=== PATIENT | male | born 1960 | race Caucasian/White ===

== ENCOUNTER 2019-01-14 05:09 | Observation (INO) ==
[2019-01-06 13:48] LABS: BASO# 0.07 X1000 (0.0-0.2); BASO% 0.7 % (0.0-0.8); EOS# 0.22 X1000 (0.0-0.7); EOS% 2.3 % (0.0-10.0); HEMATOCRIT 42.4 % (42.0-52.0); HEMOGLOBIN 14.1 g/dL (14.0-18.0); LYMPH# 3.02 X1000 (1.2-3.4); LYMPH% 31.6 % (20.5-51.1); MCHC 33.3 g/dL (33-37); MCV 81.1 FL (81-99); MONO# 0.58 X1000 (0.11-0.59); MONO% 6.1 % (1.7-9.3); MPV 11.5 FL (7.4-10.4); NEUT# 5.67 X1000 (1.4-6.5); NEUT% 59.3 % (42.2-75.2); PLT 179 X1000 (130-400); RBC 5.23 XMIL (4.7-6.1); RDW 14.2 % (11.5-14.5); WBC 9.56 X1000 (4.8-10.8)
[2019-01-06 14:12] LABS: AGAP 13; BUN 25 mg/dL (8-22); CALCIUM 8.8 mg/dL (8.8-10.2); CHLORIDE 98 mmol/L (98-107); COSMO 288; CREATININE 1.2 mg/dL (0.7-1.2); ESTIMATED GFR > 60; GLUCOSE 136 mg/dL (70-104); POTASSIUM 4.1 mmol/L (3.5-5.1); SODIUM 141 mmol/L (136-145); TCO2 30 mmol/L (25-35)
[2019-01-14] MEDS ORDERED: LR 1,000 ML ONE (05:36)
[2019-01-14] MEDS ORDERED: VALIUM ONE (05:36)
[2019-01-14] MEDS ORDERED: PEPCID ONE (05:36)
[2019-01-14] MEDS ORDERED: KEFZOL 1 GM/D5W 2 GM/100 ML IVPB ONE (05:36)
[2019-01-14] MEDS ORDERED: REGLAN ONE (05:36)
[2019-01-14] MEDS ORDERED: DIPRIVAN 1% ONE (06:24)
[2019-01-14] MEDS ORDERED: XYLOCAINE-MPF 2% ONE (07:27)
[2019-01-14] MEDS ORDERED: ROBINUL ONE (07:30)
[2019-01-14] MEDS ORDERED: NEO-SYNEPHRINE ONE (07:33)
[2019-01-14] MEDS ORDERED: PERCOCET-10 ONE (08:01)
[2019-01-14] MEDS: DILAUDID ONE ×6 (08:03→09:02)
[2019-01-14] MEDS ORDERED: LASIX ONE (08:14)
[2019-01-14] MEDS ORDERED: CARDIZEM ONE (08:28)
[2019-01-14] MEDS ORDERED: CARDIZEM IV ONE ×2 (08:30→12:45)
--- NOTE | 2019-01-14 08:42 | EKG Report ---
Test Performed on : 01/14/2019 08:26:03 AM Test Reason : rhythm change Blood Pressure : / mmHG Vent. Rate : 129 BPM Atrial Rate : 117 BPM P-R Int : 000 ms QRS Dur : 100 ms QT Int : 358 ms P-R-T Axes : 000 005 004 degrees QTc Int : 524 ms Atrial fibrillation. with rapid ventricular response. Nonspecific ST abnormality Abnormal ECG When compared with ECG of 12-OCT-2018 13:49, Atrial fibrillation. has replaced Sinus rhythm. Vent. rate has increased BY [address] now depressed in Anterolateral leads Confirmed by Tyler MENENDEZ, Karan Machado ([id number]) on 01/14/2019 4:19:43 PM
[2019-01-14] MEDS ORDERED: CARDIZEM 125 MG in NS 100 ML IV SCH ×2 (09:00→12:49)
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
--- NOTE | 2019-01-14 11:02 | CARDIOLOGY CONSULTATION ---
DATE: 01/14/2019 This is a consultation requested by Dr. Harmon from the Anesthesiology group and the Urology services of Dr. Moore. REASON FOR CONSULTATION: Atrial fibrillation postoperative. CHIEF COMPLAINT: Back pain. HISTORY: Mr. Nuñez is a 58-year-old male, who has been in his usual state of health. He has been diagnosed with recurrent kidney stones and he had undergone cystoscopy on 11/[address] Moore's services. He was brought today for external shockwave lithotripsy of the left side. Following the completion of the procedure, the patient was noted to become tachycardic and they did an EKG, which showed atrial fibrillation with rapid response. His baseline heart rate was 81 beats per minute before the procedure and the heart rate has increased to 136 beats per minute. The patient denies having chest pain, dyspnea, or palpitations. He is awake. He just has back discomfort. PAST MEDICAL HISTORY: His past history is negative for previous heart disease. He is being treated for hypertension by Dr. Ceja, who is his family doctor. He does suffer from chronic back pain. He has been admitted at some point to a hospital with abdominal pain, nausea and vomiting in February of 2018 with a question of opiate abuse. PAST SURGICAL HISTORY: He has had bilateral hip surgeries, he has chronic hip pain. He went on Disability because of back and hip pain. HOME MEDICATIONS: His home medications at this time included fluoxetine 40 mg daily, oxycodone/acetaminophen 10/325 3 times a day, lisinopril HCTZ 20/25 daily, Flomax 0.4 mg daily. ALLERGIES: The patient is not allergic to any medicine. FAMILY HISTORY: Negative. SOCIAL HISTORY: He is , lives by himself in [place]. He has 1 daughter and 1 granddaughter, who live in [place]. He smokes a pack of cigarettes a day. 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 He went on Disability just 3 years ago on account of his chronic back pain and hip pain. REVIEW OF SYSTEMS: He has been having issues with recurrent kidney stones. Recurrent back pain. No other positives. PHYSICAL EXAMINATION: Vital signs: Blood pressure right now is 167/92, pulse 136, respirations 16. General: The patient is awake, alert, oriented, in no distress. HEENT: Unremarkable. Chest: Symmetrical breath sounds. Heart: Sounds are irregularly irregular. No gallop or murmur. Abdomen: Nontender, soft. No masses. No hepatomegaly. Extremities: Showed good pulses. No peripheral edema. Neurologic exam: Follows commands, move all 4 extremities. LABORATORY: Most recent blood work that we have in the computer is from 01/07/2019. Sodium 141, potassium 4.1, BUN 25, creatinine 1.2. Hemoglobin 14.1, hematocrit is 42.4%, white cell count was normal. IMPRESSION: 1. Patient who presents with atrial fibrillation postoperatively. 2. History of chronic back pain. 3. History of recurrent kidney stones status post external shockwave lithotripsy today. 4. History of hypertension. RECOMMENDATIONS: At this time, we will keep him on IV Cardizem. I am going to get him started on low-dose metoprolol. He has to be admitted to a stepdown cardiac unit to control his atrial fibrillation. I will arrange for a subsequent cardiac workup once the patient is back in sinus rhythm. At this time, he is asymptomatic. He does not appear to be critically ill. We will follow him. cc: MD Terrance Tate MD Sergey S. Ananyev, MD
[2019-01-14] MEDS ORDERED: LANOXIN IV ONE (12:58)
[2019-01-14] MEDS ORDERED: PHENERGAN PO PRN (13:03)
[2019-01-14] MEDS: PROZAC PO SCH (13:18)
[2019-01-14] MEDS: FLOMAX PO SCH (13:18)
[2019-01-14] MEDS: PERCOCET-10 PO PRN ×2 (13:18→17:56)
[2019-01-14] MEDS: PRINZIDE 10/12.5MG PO SCH (13:21)
--- NOTE | 2019-01-14 14:47 | EKG Report ---
Test Performed on : 01/14/2019 2:05:01 PM Test Reason : Converted to SR Blood Pressure : / mmHG Vent. Rate : 064 BPM Atrial Rate : 064 BPM P-R Int : 160 ms QRS Dur : 100 ms QT Int : 416 ms P-R-T Axes : 035 018 056 degrees QTc Int : 429 ms Normal sinus rhythm. Inferior infarct , age undetermined Abnormal ECG When compared with ECG of 14-JAN-2019 08:26, (Unconfirmed) Sinus rhythm. has replaced Atrial fibrillation. Vent. rate has decreased BY [address] no longer depressed in Anterior leads Confirmed by Tylre MENENDEZ, Karan Machado ([id number]) on 01/14/2019 4:20:23 PM
[2019-01-14] MEDS: LOPRESSOR PO SCH ×2 (16:15→21:24)
--- NOTE | 2019-01-14 17:18 | OPERATIVE NOTE ---
PROCEDURE DATE : 01/14/2019 SURGEON: Torin Moore MD. PREOPERATIVE DIAGNOSES: 1. Left renal stones. 2. Left flank pain. PROCEDURE PERFORMED: Left extracorporeal shockwave lithotripsy. INDICATIONS: A 58-year-old male who was seen by me in the past secondary to renal stones. He had a ureteral stone for which he underwent ureteroscopy in the past. He has multiple renal stones bilaterally. He reports intermittent left flank pain. He presents for definitive intervention with ESWL. FINDINGS: Five stones addressed. One in the upper pole, one in the inner pole area, and three in the lower pole with 3000 shocks delivered at a frequency of 1.5 hertz, energy settings from 1 until 7, and total fluoroscopy time of 4 minutes and 4 seconds. The stones all showed excellent fragmentation. DESCRIPTION OF PROCEDURE: After obtaining informed consent, the patient was brought to the operating room. Perioperative antibiotics and laryngeal mask anesthesia were administered. He was placed in the supine position with the Lithotripter over his left side. The stones were easily seen. The above stated number of shocks were delivered. Then 20 mg of intravenous Lasix were given. He tolerated the procedure well, was extubated, and taken to the PACU for further recovery. ESTIMATED BLOOD LOSS: None. COMPLICATIONS: None. DRAINS: None. SPECIMENS: None. DISPOSITION: To PACU and subsequently home with prescription for Percocet 7.5 p.r.n. (#20). I was informed by Dr. Harmon with Anesthesia, that Mr. Nuñez went into atrial fibrillation with rapid ventricular response in the recovery room. He was reportedly started on Cardizem drip and Dr. French with Cardiology was consulted. Recommendations were to observe the patient overnight. I discussed the patient with ALENA Concepcion with hospitalist service, who graciously agreed to admit the patient for further observation. From the urological standpoint he does not need a [place] catheter. He is expected to have some hematuria and left flank pain. I will follow while he is in the hospital. cc: Torin Moore MD
[2019-01-15] MEDS: LOPRESSOR PO SCH ×2 (02:51→03:42)
[2019-01-15] MEDS: PERCOCET-10 PO PRN ×2 (03:41→09:21)
--- NOTE | 2019-01-15 07:43 | EKG Report ---
Test Performed on : 01/15/2019 06:28:30 AM Test Reason : [id number] Blood Pressure : / mmHG Vent. Rate : 053 BPM Atrial Rate : 053 BPM P-R Int : 170 ms QRS Dur : 104 ms QT Int : 454 ms P-R-T Axes : 034 023 049 degrees QTc Int : 426 ms Sinus bradycardia. Cannot rule out Inferior infarct (cited on or before 14-JAN-2019) Abnormal ECG When compared with ECG of 14-JAN-2019 14:05, No significant change was found Unconfirmed Result
[2019-01-15] MEDS ORDERED: TOPROL XL PO SCH (09:00)
[2019-01-15] MEDS: FLOMAX PO SCH (09:20)
[2019-01-15] MEDS: PRINZIDE 10/12.5MG PO SCH (09:20)
[2019-01-15] MEDS: PROZAC PO SCH (09:20)
[2019-01-15] MEDS ORDERED: CARDIZEM 125 MG in NS 100 ML IV PRN (11:15)
[2019-01-15 11:55] VITALS: BP 128/76
--- NOTE | 2019-01-15 12:23 | PROGRESS NOTE ---
DATE: 01/15/2019 SUBJECTIVE: Mr. Nuñez is doing better. He is in regular sinus rhythm with sinus bradycardia. He is being discharged by Dr. French and he is on Toprol-XL 50 mg daily, and he was given 20 Percocet 7.5 today. He will be discharged on Friday. -7 cc: MD Torin Tate MD
--- NOTE | 2019-01-15 15:18 | CARDIOLOGY PROGRESS NOTE ---
DATE: 01/15/2019 CHIEF COMPLAINT: Irregular heartbeat. Flank pain. SUBJECTIVE: Mr. Nuñez converted back to sinus rhythm. He is not having anymore issues with that. He did not actually feel any palpitations. His flank pain is better. OBJECTIVE: Vital signs: Blood pressure 124/68, temperature 97.3, pulse is 60 per minute, respirations 14 per minute. General: He is awake, alert, oriented, no distress. HEENT: Unremarkable. Chest: Clear to auscultation and percussion. Heart: Sounds are regular and rhythmic. No gallop or murmur. Abdomen: Nontender. Extremities: Showed no edema. Neurologic exam: Follows commands, moves all 4 extremities. IMPRESSION: 1. Patient who developed paroxysmal atrial fibrillation following external shockwave lithotripsy for management of kidney stones. 2. Chronic back pain. 3. History of osteoarthritis. 4. History of hypertension. RECOMMENDATIONS: At this time, the patient may go home on metoprolol XL 50 mg daily. He will follow up with me in about a month at the office. We may consider doing a loop recorder monitor for him to make sure that he does not get any recurrent atrial fibrillation. He is going to be discharged on metoprolol XL 50 mg daily. He will continue also to take his lisinopril as ordered by Dr. Ceja. Thank you again for the opportunity to participate in his evaluation. cc: MD Torin Adan MD
--- NOTE | 2019-01-15 22:56 | DISCHARGE SUMMARY ---
ADMISSION DATE: 01/14/2019 DISCHARGE DATE: 01/15/2019 HOSPITAL SUMMARY: Mr. Nuñez who is a 58-year-old white gentleman was admitted following lithotripsy procedure. He went into atrial fibrillation and had rapid ventricular rate. He has a known case of hypertension. He had rapid ventricular rate in OR. He was seen by Dr. French. EKG had revealed RVR, and then EKG returned back to regular sinus rhythm later on. He had sinus bradycardia today. Lab data revealed CBC was unremarkable. His electrolytes were normal. BUN 25, creatinine 1.2. Troponin was negative. CK-MB was negative. He was seen by Dr. French, who started a Cardizem drip. Later on, he was placed on metoprolol-XL at 50 mg, and he is discharged today. He was given [address] French. FINAL DIAGNOSIS: Paroxysmal atrial fibrillation with RVR, hypertension, status post lithotripsy. FOLLOWUP: He will be seen in the office in about 3 to 4 days. cc: MD Torin Tate MD
== END 2019-01-15 12:56 | disposition home or self-care (01) ==
LOC: OR 05:09 → 3S 05:09
PROVIDERS: ADMIT Urology; ATTEND Internal Medicine
PROC: UR.ESWL (2019-01-14 06:59)
CPT/HCPCS: 80048; 82550; 84484; 85025; 93005; 93010; 94761; A9270; J0690; J1160; J1170; J1940; J2370; J7120

== ENCOUNTER 2019-04-20 12:22 | Inpatient (IN) ==
[2019-04-20] MEDS ORDERED: PNEUMOVAX 23 IM ONE (15:30)
[2019-04-20] MEDS ORDERED: TUBERSOL ID ONE (16:48)
[2019-04-20] MEDS ORDERED: ATARAX PO PRN (18:01)
[2019-04-20] MEDS ORDERED: DESYREL PO PRN (18:01)
[2019-04-20] MEDS ORDERED: ZOFRAN IV PRN (18:01)
[2019-04-20] MEDS ORDERED: MAALOX PLUS LIQUID PO PRN (18:01)
[2019-04-20] MEDS ORDERED: SINEMET 25/100 PO PRN (18:01)
[2019-04-20] MEDS ORDERED: DULCOLAX PR PRN (18:01)
[2019-04-20] MEDS ORDERED: ROBAXIN PO PRN (18:01)
[2019-04-20] MEDS ORDERED: D5W 1,000 ML IV PRN (18:01)
[2019-04-20] MEDS ORDERED: IMODIUM PO PRN (18:01)
[2019-04-20] MEDS ORDERED: SENOKOT PO PRN (18:01)
[2019-04-20] MEDS ORDERED: PHENOBARBITAL IV PRN (18:01)
[2019-04-20] MEDS ORDERED: LIBRIUM PO PRN (18:01)
[2019-04-20] MEDS ORDERED: TYLENOL PO PRN (18:01)
[2019-04-20] MEDS ORDERED: ZOFRAN ODT PO PRN (18:01)
[2019-04-20] MEDS ORDERED: MOTRIN PO PRN (18:01)
[2019-04-20 18:51] LABS: URINE SOURCE VOIDED
[2019-04-20 18:51] LABS: MCHC 32.6 g/dL (33-37); MCV 79.6 FL (81-99); MPV 11.3 FL (7.4-10.4); RBC 5.78 XMIL (4.7-6.1); RDW 13.6 % (11.5-14.5); WBC 12.18 X1000 (4.8-10.8)
[2019-04-20 19:01] LABS: INR 0.98; PROTIME 13.5 Seconds (11.0-16.0)
[2019-04-20 19:09] LABS: UR AMPHETAMINES QUAL NONE DETECTED (NONE DETECT); UR BARBITUATES QUAL NONE DETECTED (NONE DETECT); UR BENZODIAZEPIN QUAL PRESUMPTIVE POSITIVE (NONE DETECT); UR CANNABINOIDS QUAL NONE DETECTED (NONE DETECT); UR COCAINE QUAL NONE DETECTED (NONE DETECT); UR METHADONE QUAL PRESUMPTIVE POSITIVE (NONE DETECT); UR METHAMPHETAMINE QUAL NONE DETECTED (NONE DETECT); UR OPIATES QUAL PRESUMPTIVE POSITIVE (NONE DETECT); UR OXYCODONE QUAL NONE DETECTED (NONE DETECT); UR PCP QUAL NONE DETECTED (NONE DETECT); UR PROPOXYPHENE QUAL NONE DETECTED (NONE DETECT); UR TCA QUAL NONE DETECTED (NONE DETECT)
[2019-04-20 19:10] LABS: ESTIMATED GFR > 60
[2019-04-20 19:12] LABS: AMYLASE 16 U/L (20-200); LIPASE 8 U/L (13-60)
[2019-04-20 19:15] LABS: AGAP 16; ALBUMIN 4.1 g/dL (3.5-5.0); ALKALINE PHOSPHATASE 120 U/L (32-122); BUN 18 mg/dL (8-22); CALCIUM 9.8 mg/dL (8.8-10.2); CHLORIDE 92 mmol/L (98-107); COSMO 291; GOT 11 U/L (10-34); GPT 22 U/L (10-44); POTASSIUM 3.8 mmol/L (3.5-5.1); SODIUM 132 mmol/L (136-145); TCO2 24 mmol/L (25-35); TOTAL PROTEIN 7.4 g/dL (6.3-8.3)
[2019-04-20 19:17] LABS: BILIRUBIN URINE NEGATIVE (NEGATIVE); BLOOD URINE NEGATIVE (NEGATIVE); KETONE URINE TRACE mg/dL (NEGATIVE); LEUKOCYTES URINE NEGATIVE (NEGATIVE); NITRITE URINE NEGATIVE (NEGATIVE); PROTEIN URINE NEGATIVE (NEGATIVE); SP GRAVITY URINE 1.015; UROBILINOGEN URINE NORMAL
[2019-04-20 19:18] LABS: CLARITY CLEAR (CLEAR); COLOR YELLOW
[2019-04-20 19:21] LABS: GLUCOSE 543 mg/dL (70-104)
[2019-04-20] MEDS ORDERED: SUBOXONE 2 MG/0.5 MG FILM SL SCH (20:00)
[2019-04-20] MEDS: HUMALOG (PARKWAY) SUBQ SCH ×2 (20:26→22:43)
[2019-04-20] MEDS: ATIVAN PO SCH (20:26)
[2019-04-20] MEDS: NICODERM PATCH TD PRN (20:57)
[2019-04-21] MEDS: PROTONIX PO SCH ×2 (05:57→06:08)
[2019-04-21] MEDS: BENTYL PO PRN (06:06)
[2019-04-21] MEDS: HUMALOG (PARKWAY) SUBQ SCH ×4 (06:07→20:54)
[2019-04-21 08:12] LABS: HEMOGLOBIN A1C 9.7 % (4.8-6.0)
[2019-04-21 08:14] LABS: AGAP 13; ALBUMIN 4.1 g/dL (3.5-5.0); ALKALINE PHOSPHATASE 125 U/L (32-122); BUN 20 mg/dL (8-22); CALCIUM 8.9 mg/dL (8.8-10.2); CHLORIDE 94 mmol/L (98-107); COSMO 284; CREATININE 0.8 mg/dL (0.7-1.2); ESTIMATED GFR > 60; GLUCOSE 309 mg/dL (70-104); GOT 13 U/L (10-34); GPT 20 U/L (10-44); POTASSIUM 3.6 mmol/L (3.5-5.1); SODIUM 135 mmol/L (136-145); TCO2 29 mmol/L (25-35); TOTAL PROTEIN 7.1 g/dL (6.3-8.3)
[2019-04-21] MEDS ORDERED: REVIA PO ONE (08:43)
[2019-04-21] MEDS: FOLIC ACID PO SCH (09:07)
[2019-04-21] MEDS: THERA M PLUS PO SCH (09:07)
[2019-04-21] MEDS: SUBOXONE 8 MG/2 MG FILM SL SCH ×2 (09:08→20:54)
[2019-04-21] MEDS: ATARAX PO PRN ×2 (09:08→16:51)
[2019-04-21] MEDS: VITAMIN B-1 PO SCH (09:08)
[2019-04-21] MEDS ORDERED: VIVITROL IM ONE (14:00)
[2019-04-21] MEDS: ATIVAN PO SCH (21:59)
[2019-04-21] MEDS: NICODERM PATCH TD PRN (21:59)
[2019-04-21] MEDS: SEROQUEL PO PRN (21:59)
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
[2019-04-22] MEDS: PROTONIX PO SCH ×2 (05:54→06:44)
[2019-04-22] MEDS: ATARAX PO PRN ×3 (05:55→17:21)
[2019-04-22] MEDS: HUMALOG (PARKWAY) SUBQ SCH ×5 (05:56→21:05)
[2019-04-22] MEDS: BENTYL PO PRN (05:57)
[2019-04-22 06:25] LABS: HEMOGLOBIN 15.1 g/dL (14.0-18.0); MCH 26.2 PG (27-31); MCHC 32.8 g/dL (33-37); MCV 79.7 FL (81-99); MPV 11.1 FL (7.4-10.4); RBC 5.77 XMIL (4.7-6.1); RDW 13.5 % (11.5-14.5); WBC 8.01 X1000 (4.8-10.8)
[2019-04-22] MEDS: JANUVIA PO SCH (08:27)
[2019-04-22] MEDS: THERA M PLUS PO SCH (08:27)
[2019-04-22] MEDS: VITAMIN B-1 PO SCH (08:27)
[2019-04-22] MEDS: SUBOXONE 8 MG/2 MG FILM SL SCH ×2 (08:27→21:04)
[2019-04-22] MEDS: FOLIC ACID PO SCH (08:27)
[2019-04-22] MEDS: ATIVAN PO SCH (21:04)
[2019-04-22] MEDS: SEROQUEL PO PRN (21:18)
[2019-04-22] MEDS: NICODERM PATCH TD PRN (22:37)
--- NOTE | 2019-04-23 00:53 | PROGRESS NOTE ---
DATE: 04/22/2019 SUBJECTIVE: Patient notes overall he is feeling better. Still very scared about going home given his elevated blood sugars. Would like to talk to grain oilseed or pasture farm manager. PHYSICAL EXAMINATION: Vital Signs: Reviewed. General: Patient is awake, alert, currently in no distress. HEENT: Normocephalic. Neck: Supple. Cardiovascular: Regular rate. Chest: Clear. Abdomen: Soft. Extremities: Moves all extremities. ASSESSMENT: 1. Diabetes with extremely poor home control with an A1c of 9.7. We are going to continue medications. Continue Januvia, sliding scale. Ask grain oilseed or pasture farm manager to see and evaluate. 2. Nausea, vomiting. 3. Abdominal pain. 4. Opiate abuse, withdrawal and stabilization. PLAN: Overall, patient is doing well from a Suboxone standpoint. His blood sugars are certainly what is got him stay in the hospital. We are going to adjust medications. Further orders as needed. cc: Christian Sandoval MD
[2019-04-23] MEDS: ATARAX PO PRN ×2 (03:24→09:19)
[2019-04-23] MEDS: HUMALOG (PARKWAY) SUBQ SCH ×3 (05:40→11:59)
[2019-04-23] MEDS: PROTONIX PO SCH ×2 (05:41→06:01)
[2019-04-23] MEDS ORDERED: GLUCOPHAGE PO SCH (08:00)
[2019-04-23 09:01] VITALS: BP 148/71
[2019-04-23] MEDS: FOLIC ACID PO SCH (09:09)
[2019-04-23] MEDS: VITAMIN B-1 PO SCH (09:09)
[2019-04-23] MEDS: JANUVIA PO SCH (09:09)
[2019-04-23] MEDS: THERA M PLUS PO SCH (09:09)
[2019-04-23] MEDS: SUBOXONE 8 MG/2 MG FILM SL SCH (09:10)
--- NOTE | 2019-04-24 04:23 | DISCHARGE SUMMARY ---
ADMISSION DATE: 04/20/2019 DISCHARGE DATE: 04/23/2019 DISCHARGE DIAGNOSES: 1. Nausea, vomiting. 2. Abdominal pain. 3. Myalgias. 4. Paresthesias. 5. Paroxysmal sweating. 6. Opiate abuse, withdrawal and stabilization. 7. Diabetes with very poor home control with A1c of 9.7 with initial blood sugar at 500. CONSULTATIONS: None. PROCEDURES: None. BRIEF HOSPITAL COURSE: The patient is a 58-year-old male who presented to the hospital, treated in the usual fashion. He was placed on Suboxone as well as fingersticks. We placed him on Januvia and sliding scale insulin. Blood sugars remained elevated. We did add Glucophage. Also had nutrition consult for dietary education while he was in the hospital. On discharge, he is awake, alert. His nausea has resolved. He is feeling much better. States that he is feeling almost back to normal. He has eaten a regular diet. He will continue diabetes management at home as well as Suboxone 8/2 twice daily. DISPOSITION: Patient will be discharged home. Discussed with him diabetes, diabetic diet, and medications. Certainly should consider Ozempic or Trulicity as an outpatient. Did not start this yet due to his recent nausea. Continue Suboxone. Further orders as needed. He will follow up outpatient with primary care of choice. cc: Christian Sandoval MD
== END 2019-04-23 14:28 | disposition home or self-care (01) | DRG 897 ==
LOC: P.DIRADM 13:32 → P.MEDSURG 13:38
PROVIDERS: ADMIT Family Medicine; ATTEND Family Medicine

== ENCOUNTER 2019-10-27 10:28 | Inpatient (IN) ==
[2019-10-27] MEDS ORDERED: ATIVAN PO PRN (12:50)
[2019-10-27] MEDS ORDERED: D50W SYRINGE IV PRN (13:00)
--- NOTE | 2019-10-27 13:55 | EKG Report ---
Test Performed on : 10/27/2019 1:50:50 PM Test Reason : direct admit for a-fib RVR Blood Pressure : / mmHG Vent. Rate : 063 BPM Atrial Rate : 063 BPM P-R Int : 166 ms QRS Dur : 104 ms QT Int : 406 ms P-R-T Axes : 042 035 045 degrees QTc Int : 415 ms Normal sinus rhythm. Normal ECG When compared with ECG of 15-JAN-2019 06:28, Nonspecific T wave abnormality no longer evident in Lateral leads Confirmed by Dae Contreras MD ([id number]) on 10/27/2019 4:01:44 PM
--- NOTE | 2019-10-27 14:06 | Diag Imaging Result Doc PS360 ---
CHEST-PORTABLE - 10/27/2019 INDICATION: direct admit COMPARISON: 03/31/2012 FINDINGS: The lungs are normally expanded and clear. Heart size and mediastinal contours are normal. No pneumothorax or pleural effusion. IMPRESSION: Negative exam. Electronically signed by Arun Darling 10/27/2019 2:04 PM
[2019-10-27 14:08] LABS: BASO# 0.03 X1000 (0.0-0.2); BASO% 0.5 % (0.0-0.8); EOS# 0.04 X1000 (0.0-0.7); EOS% 0.6 % (0.0-10.0); HEMATOCRIT 41.3 % (42.0-52.0); IMM GRAN# 0.02 X1000 (0.0-0.04); IMM GRAN% 0.3 % (0.0-0.5); LYMPH# 1.54 X1000 (1.2-3.4); MCH 28.1 PG (27-31); MCHC 33.9 g/dL (33-37); MCV 82.8 FL (81-99); MONO# 0.45 X1000 (0.11-0.59); MPV 11.9 FL (7.4-10.4); NEUT# 4.35 X1000 (1.4-6.5); NEUT% 67.6 % (42.2-75.2); PLT 100 X1000 (130-400); RBC 4.99 XMIL (4.7-6.1); RDW 18.9 % (11.5-14.5); WBC 6.43 X1000 (4.8-10.8)
[2019-10-27 14:35] LABS: AGAP 17; ALB/GLOB RATIO 1.5; ALKALINE PHOSPHATASE 362 U/L (32-122); BUN 22 mg/dL (8-22); CALCIUM 9.7 mg/dL (8.8-10.2); CHLORIDE 98 mmol/L (98-107); CK PROFILE 124 U/L (24-204); COSMO 287; CREATININE 0.9 mg/dL (0.7-1.2); ESTIMATED GFR > 60; GLUCOSE 103 mg/dL (70-104); GOT 368 U/L (10-34); GPT 201 U/L (10-44); POTASSIUM 3.7 mmol/L (3.5-5.1); SODIUM 142 mmol/L (136-145); TCO2 27 mmol/L (25-35); TOTAL BILIRUBIN 2.05 mg/dL (0.20-1.00); TOTAL PROTEIN 6.6 g/dL (6.3-8.3)
[2019-10-27 14:51] LABS: ALLEN TEST NO; BE 3.2 mmoll (-3.0-3.0); BLOOD TYPE ARTERIAL; HCO3-(ACT) 27.2 mmoll (20.0-26.0); METHB 1.3 % (0.0-1.5); O2(CT) 18.8 mL/dL (15.0-23.0); O2HB 91.4 % (95.0-99.0); PCO2(98.6) 42 mmHg (35-45); PO2(98.6) 123 mmHg (60-100); SAMPLE BLOOD; SAO2 98.8 % (95.0-100.0); THB 14.5 g/dL (11.5-17.4); pH(98.6) 7.43 (7.35-7.45)
[2019-10-27 14:53] LABS: MODALITY CANNULA
[2019-10-27] MEDS ORDERED: THIAMINE 200 MG in NS 50 ML IV ONE (14:56)
--- NOTE | 2019-10-27 15:25 | CONSULTATION ---
DATE OF CONSULTATION: 10/27/2019 IMPRESSION: 1. Atrial fibrillation episode in the setting of excess alcohol use. Patient had previous episode of atrial fibrillation postoperatively following lithotripsy a year ago. 2. Alcohol dependency, ongoing. Patient's last drink was this morning at 8 a.m. He relates problems with delirium tremens when he stops drinking. 3. Polysubstance abuse in the past including narcotics and marijuana. 4. Hypertension. 5. Type 2 diabetes mellitus. RECOMMENDATIONS: 1. Continue to monitor on telemetry. 2. Cessation of alcohol use strongly advised. It was suggested to the patient that he consider going through a rehabilitation program after he is detoxified. 3. Urine drug screen. 4. Echocardiography. HISTORY: This 59-year-old, white male with a past history of previous atrial fibrillation following lithotripsy last year, alcohol dependency, polysubstance abuse, hypertension, and more recent type 2 diabetes mellitus was admitted from Dr. Ceja's office for further management of atrial fibrillation with rapid ventricular rate. Patient has been drinking fairly heavily for the last 3 months and relates drinking a pint of vodka daily. He also smokes cigarettes. He has some chest congestion and cough productive of clear sputum. For this reason, he went to Dr. Ceja's office and was noted to have a regular tachycardia with ECG reportedly showing atrial fibrillation with rapid ventricular rate. He was referred to the hospital for direct admission. He is not aware of his atrial fibrillation. He denies any chest discomfort, unusual shortness of breath, or palpitations. PAST MEDICAL HISTORY: 1. Previous episode of atrial fibrillation following lithotripsy last year. 2. Hypertension. 3. Type 2 diabetes mellitus. 4. Nephrolithiasis. 5. Alcohol dependency, ongoing. 6. Polysubstance abuse with narcotics and marijuana in the past. 7. Chronic back disorder. PAST SURGICAL HISTORY: Past surgical history includes bilateral hip surgeries. ALLERGIES: He has no known drug allergies. MEDICATIONS PRIOR TO ADMISSION: As listed. SOCIAL HISTORY: He is . 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 He has been disabled for the last 4 years due to degenerative joint disease. He has been drinking a pint of vodka daily. He continues to smoke cigarettes, smoking at least a pack of cigarettes daily. There is a past history of polysubstance abuse with narcotics and cannabis. FAMILY HISTORY: Negative for premature coronary disease. REVIEW OF SYSTEMS: Pulmonary: Noteworthy for some chest congestion and cough productive of clear sputum. Gastrointestinal: Negative. Constitutional: Negative. The remainder of review of systems is negative/noncontributory with 14 total systems reviewed. PHYSICAL EXAMINATION: General: This is an overweight, middle-aged, white male in no distress, on room air. Vital Signs: Blood pressure 131/69, heart rate 71, with ECG monitor presently showing sinus rhythm. Oxygen saturation 96% on room air. HEENT Examination: Extraocular movements appear intact. Mucous membranes are moist. Neck: Supple without jugular venous distention. There are no carotid bruits. Chest: Clear to auscultation bilaterally. Cardiac Examination: Reveals a regular rate and rhythm without appreciable murmur or gallop. Abdomen: Soft. Bowel sounds are normal. Extremities: Without edema. Neurologic Examination: Reveals him alert and fully oriented. Speech is fluent. He moves all 4 extremities equally well. Skin: Warm and dry. Psychiatric Examination: Reveals him to be mildly anxious. PERTINENT DATA: Twelve lead EKG demonstrates normal sinus rhythm, is within normal limits. LABORATORY DATA: Includes white blood cell count 6.43, hematocrit 41.3, hemoglobin 14.0, platelet count 100,000. Sodium 142, potassium 3.7, chloride 98, carbon dioxide 27, BUN 22, creatinine 0.9, glucose 103. Bilirubin 2.05, AST 368, ALT 201, alkaline phosphatase 362, albumin 4.0. Troponin T high sensitivity 20. cc: MD Drew Paul MD
[2019-10-27] MEDS ORDERED: ATIVAN IM ONE (16:40)
[2019-10-27] MEDS: HUMALOG SUBQ SCH ×2 (16:49→22:12)
[2019-10-27] MEDS: NICODERM PATCH TD SCH (16:57)
[2019-10-27] MEDS: GLUCOPHAGE PO SCH (16:57)
[2019-10-27] MEDS ORDERED: GLUCOPHAGE PO SCH (17:00)
[2019-10-27 17:20] LABS: INR 0.89; PROTIME 12.2 Seconds (11.0-16.0)
[2019-10-27 17:22] LABS: UR AMPHETAMINES QUAL NONE DETECTED (NONE DETECT); UR BARBITUATES QUAL NONE DETECTED (NONE DETECT); UR BENZODIAZEPIN QUAL NONE DETECTED (NONE DETECT); UR CANNABINOIDS QUAL NONE DETECTED (NONE DETECT); UR COCAINE QUAL NONE DETECTED (NONE DETECT); UR METHADONE QUAL NONE DETECTED (NONE DETECT); UR OPIATES QUAL NONE DETECTED (NONE DETECT); UR OXYCODONE QUAL NONE DETECTED (NONE DETECT); UR PCP QUAL NONE DETECTED (NONE DETECT)
--- NOTE | 2019-10-27 17:43 | HISTORY AND PHYSICAL ---
HISTORY OF PRESENT ILLNESS: Mr. Nuñez who is a 59-year-old white gentleman comes to the office very nervous. He has been drinking a pint of whiskey every day for the last 3 months. By the time the alcohol level goes down he gets jittery and he drinks more to stop the jitteriness. He came to the office for some extra help. PAST MEDICAL HISTORY: He has a history of paroxysmal atrial fibrillation, which happened about a year ago after lithotripsy surgery. It was very short lasting at that time. He was seen by Dr. French. Thereafter, he was prescribed some Cardizem. Mr. Nuñez has chronic pain syndrome with his left hip where he has severe arthritis. He has history of hypertension, maturity onset diabetes. PAST SURGICAL HISTORY: He had 1 neck surgery and lithotripsy done about 4 times. SOCIAL HISTORY: He is a chronic heavy smoker. He has been drinking for last 3 months. He smokes about a pack of cigarettes per day. ALLERGIES: He is not allergic to any medications. MEDICATIONS: He does take metformin and lisinopril for hypertension. REVIEW OF SYSTEMS: Other than nervousness, he denies having any chest pain or shortness of breath. PHYSICAL EXAMINATION: GENERAL: The patient is alert and oriented. VITAL SIGNS: Reveal temperature normal, pulse 64 per minute, respiratory rate 24 per minute, blood pressure 104/56. When he was in the office, he was in atrial fibrillation and had a heart rate of 129. Apparently this was paroxysmal atrial fibrillation. HEENT: Head normocephalic. Pupils PERRLA. Fundus examination normal. NECK: Supple JVP normal. ENT: Examination unremarkable. There is no evidence of lymphadenopathy, thyroid enlargement, pedal edema, calf tenderness, anemia, cyanosis, or clubbing. Pedal pulses well felt. BREAST EXAM: Normal. CHEST: Normal inspection. LUNGS: Clear to auscultation. PMI in the normal position. HEART: Regular now. Heart rate is around 68 per minute. No murmur, gallop, or rub noted. ABDOMEN: Nondistended. Hernial orifices normal. No guarding, rigidity, free fluid, masses, or organomegaly. Bowel sounds normal. RECTAL: Deferred. 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 Cranial nerves normal. Motor and sensory system examination unremarkable. He has some fine tremors at the present time. Deep tendon reflexes normal. Plantars downgoing. Skull and spine examination reveals painful movements of the lumbosacral spine. No cerebellar signs or signs of meningeal irritation. Left hip movements are painful. CLINICAL IMPRESSIONS: 1. Arthritis in the left hip. 2. Degenerative disk disease in the lumbar spine, as well as cervical spine. 3. Paroxysmal atrial fibrillation. 4. History of hypertension. 5. Maturity onset diabetes. 6. Multiple renal stones, status post lithotripsy. PLAN: The patient was in atrial fibrillation in my office and we ordered Cardizem. However, he is in regular sinus rhythm. We will give him Ativan on a p.r.n. basis. Try to get a PICC line as we had difficulty getting venous access. cc: Drew Ceja MD
[2019-10-27] MEDS: ATIVAN IM PRN (18:16)
[2019-10-27] MEDS: ATIVAN 20 MG in NS 190 ML IV SCH (21:45)
[2019-10-27] MEDS ORDERED: FOLIC ACID IV ONE (23:00)
[2019-10-27] MEDS ORDERED: M V I IV ONE (23:00)
[2019-10-27] MEDS ORDERED: THIAMINE IV ONE (23:00)
[2019-10-27] MEDS ORDERED: MAGNESIUM SULFATE IV ONE (23:00)
[2019-10-27] MEDS ORDERED: [UNRECOGNIZED DRUG - OTHER] IV ONE (23:00)
[2019-10-27] MEDS: LOPRESSOR IV SCH ×2 (23:20→23:24)
[2019-10-27] MEDS: ATIVAN IV PRN (23:39)
[2019-10-28] MEDS: ATIVAN IV PRN ×3 (03:13→17:09)
[2019-10-28] MEDS: ATIVAN 20 MG in NS 190 ML IV SCH (07:01)
[2019-10-28] MEDS: HUMALOG SUBQ SCH ×4 (07:53→21:11)
[2019-10-28] MEDS: GLUCOPHAGE PO SCH ×2 (07:53→16:48)
[2019-10-28] MEDS: THERA M PLUS PO SCH (08:00)
[2019-10-28] MEDS: JANUVIA PO SCH (08:00)
[2019-10-28] MEDS: TOPROL XL PO SCH (08:00)
[2019-10-28] MEDS: PRAVACHOL PO SCH (08:00)
[2019-10-28] MEDS: NICODERM PATCH TD SCH (08:00)
[2019-10-28] MEDS: THIAMINE 100 MG in NS 50 ML IV SCH (08:00)
[2019-10-28] MEDS: PRINIVIL PO SCH (08:00)
[2019-10-28 08:30] LABS: AGAP 12; ALB/GLOB RATIO 1.5; ALBUMIN 3.9 g/dL (3.5-5.0); ALKALINE PHOSPHATASE 306 U/L (32-122); BUN 25 mg/dL (8-22); CALCIUM 9.6 mg/dL (8.8-10.2); CHLORIDE 98 mmol/L (98-107); COSMO 291; CREATININE 0.7 mg/dL (0.7-1.2); ESTIMATED GFR > 60; GLUCOSE 187 mg/dL (70-104); GOT 160 U/L (10-34); GPT 153 U/L (10-44); MAGNESIUM 1.5 mg/dL (1.5-2.7); POTASSIUM 4.1 mmol/L (3.5-5.1); SODIUM 141 mmol/L (136-145); TCO2 31 mmol/L (25-35); TOTAL BILIRUBIN 0.99 mg/dL (0.20-1.00); TOTAL PROTEIN 6.5 g/dL (6.3-8.3)
[2019-10-28] MEDS ORDERED: NON-FORMULARY MED (Lisinopril/Hydrochlorothiazide [Lisinopril-Hctz 20-25 Mg Tab] 1 TAB) PO SCH (09:00)
[2019-10-28] MEDS ORDERED: TOPROL XL PO SCH (09:00)
--- NOTE | 2019-10-28 09:21 | PROGRESS NOTE ---
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 We are going to stay away from phenobarbital, as well as Librium, and will see if we can get by with Ativan. His general condition is unchanged. We started his IV, so we will try to hold on if he can continue with the same IV line. We will have a consult for him for PICC line; however, we are going to try to hold on if we could. We are going to continue his other management. His electrolyte status is stable. His CBC is unremarkable. Potassium this morning was 4.1. Liver enzymes are going down. His alkaline phosphatase is still elevated. Later on when he settles down, will try to work up on that. cc: Drew Ceja MD
[2019-10-28] MEDS ORDERED: NS 0 ML ONE (11:08)
[2019-10-28] MEDS: GEODON IM PRN (11:53)
[2019-10-28] MEDS: STERILE WATER INJ. INJ PRN (11:55)
[2019-10-28] MEDS: NORCO-10 PO PRN (13:26)
--- NOTE | 2019-10-28 13:28 | PROGRESS NOTE ---
DATE: 10/28/2019 SUBJECTIVE: Patient has developed some confusion, and early manifestations of DTs. He has been started on an intravenous Ativan drip. He continues in sinus rhythm. OBJECTIVE: Vital Signs: Blood pressure 146/68, heart rate 70 with ECG monitor showing sinus rhythm. Oxygen saturation 94% on room air. There is no significant jugular venous distention. Chest is clear to auscultation bilaterally. Cardiac exam reveals a regular rate and rhythm without appreciable murmur or gallop. There is no evidence of peripheral edema. LABORATORY DATA: Includes sodium 141, potassium 4.1, chloride 98, carbon dioxide 31, BUN 25, and creatinine 0.7. Magnesium 1.5. Bilirubin 0.99. AST 160. ALT 153. Alkaline phosphatase 306. Echocardiography is pending. IMPRESSION: 1. Episode of atrial fibrillation in the setting of excessive alcohol use with history of previous postoperative atrial fibrillation a year ago following lithotripsy. Patient continues in sinus rhythm. 2. Alcohol dependency. Patient is starting to manifest evidence of DTs, and appropriate therapy has been initiated. 3. Polysubstance abuse in the past. 4. Hypertension. 5. Type 2 diabetes mellitus. RECOMMENDATIONS: 1. Continue to monitor cardiac rhythm. 2. Follow up echocardiography result. 3. Continue metoprolol. cc: MD Drew Paul MD
[2019-10-28] MEDS ORDERED: HALDOL IV ONE (19:50)
[2019-10-28 23:34] LABS: URINE SOURCE CATH
[2019-10-28 23:36] LABS: BILIRUBIN URINE NEGATIVE (NEGATIVE); BLOOD URINE MODERATE (NEGATIVE); COLOR YELLOW; GLUCOSE URINE NEGATIVE (NEGATIVE); KETONE URINE NEGATIVE (NEGATIVE); LEUKOCYTES URINE NEGATIVE (NEGATIVE); NITRITE URINE NEGATIVE (NEGATIVE); PROTEIN URINE TRACE mg/dL (NEGATIVE); SP GRAVITY URINE 1.023; TURBIDITY URINE CLEAR (CLEAR); UROBILINOGEN URINE 2 mg/dL (NORMAL)
[2019-10-28 23:38] LABS: UR EPITHELIAL CELLS <10 /HPF (<10); URINE BACTERIA NEGATIVE /HPF; URINE RBC 20-40 /HPF (<10); URINE WBC <10 /HPF (<10)
[2019-10-29] MEDS: ATIVAN 20 MG in NS 190 ML IV SCH (02:15)
[2019-10-29] MEDS: HALDOL IV PRN ×3 (02:49→20:51)
[2019-10-29] MEDS: ATIVAN IV PRN ×2 (03:44→13:42)
[2019-10-29] MEDS: CARDIZEM 100 MG/NS 100 MG/100 ML IVPB IV SCH (06:19)
[2019-10-29] MEDS: HUMALOG SUBQ SCH ×4 (07:11→20:38)
[2019-10-29] MEDS: NICODERM PATCH TD SCH (08:08)
[2019-10-29] MEDS: LOPRESSOR IV PRN (08:08)
[2019-10-29] MEDS: THIAMINE 100 MG in NS 50 ML IV SCH (08:10)
[2019-10-29] MEDS: JANUVIA PO SCH ×2 (08:27→09:01)
[2019-10-29] MEDS: GLUCOPHAGE PO SCH ×4 (08:27→16:22)
[2019-10-29] MEDS: TOPROL XL PO SCH ×2 (08:28→09:01)
[2019-10-29] MEDS: THERA M PLUS PO SCH ×2 (08:28→09:01)
[2019-10-29] MEDS: PRINIVIL PO SCH ×2 (08:28→09:01)
[2019-10-29] MEDS: PRAVACHOL PO SCH ×2 (08:28→09:02)
--- NOTE | 2019-10-29 10:05 | ECHO REPORT ---
ORDER DATE: 10/28/2019 MEASUREMENTS: Septal thickness 1.1, left ventricular internal diameter end diastole 5.1, posterior wall thickness 1.1, left ventricular internal diameter end systole 3.4, aortic root 3.1, left atrium 5.0, aortic root 3.1, left atrium 4.2. SUMMARY: 1. Technically difficult study due to limited acoustic window quality. 2. The aortic valve is trileaflet and opens normally on 2-dimensional images. The peak gradient across the aortic valve is less than 10 mmHg. There is trace aortic regurgitation. Mitral and tricuspid valves are without gross structural abnormality. Pulmonic valve is not well imaged. There is very mild tricuspid regurgitation. The aortic root is normal in size. 3. Normal left ventricular dimension suggested on 2-dimensional images. The estimated left ventricular ejection fraction appears to be at least 65%. No regional wall motion abnormality can be appreciated. The left atrium is mildly enlarged. The right atrium and right ventricle are grossly normal in size with grossly preserved right ventricular systolic function. 4. No pericardial effusion. 5. Appearance of the inferior vena cava suggests normal central venous pressure. cc: MD Drew Paul MD
--- NOTE | 2019-10-29 10:13 | EKG Report ---
Test Performed on : 10/29/2019 05:51:30 AM Test Reason : HR 130'S Blood Pressure : / mmHG Vent. Rate : 127 BPM Atrial Rate : 133 BPM P-R Int : 000 ms QRS Dur : 096 ms QT Int : 342 ms P-R-T Axes : 000 050 -36 degrees QTc Int : 497 ms Atrial fibrillation. with rapid ventricular response. Marked ST abnormality, possible anterior subendocardial injury Abnormal ECG When compared with ECG of - Atrial fibrillation. has replaced normal sinus rhythm. ST abormality is new. Confirmed by Dae Contreras MD ([id number]) on 10/30/2019 5:28:33 PM
[2019-10-29 11:40] LABS: HEPATITIS PROFILE ACUTE SEE COMMENTS
--- NOTE | 2019-10-29 11:42 | PROGRESS NOTE ---
DATE: 10/29/2019 SUBJECTIVE: Mr. Nuñez has done into full DTs. He is very confused, somewhat tremulous. Last night, he went into paroxysmal atrial fibrillation with RVR again and Cardizem drip was started. He is still getting the Cardizem IV. Overall condition is unchanged. We are going to continue him on the on the DT protocol, however, we have not given him the Librium or phenobarbital, instead we are using Haldol or Geodon. Overall condition is otherwise unchanged. OBJECTIVE: Vital signs: Stable. Lungs: Clear. Cardiovascular: He is in regular sinus rhythm at the present time. Will continue with the current management. cc: Drew Ceja MD
[2019-10-29] MEDS ORDERED: VALIUM IV ONE ×2 (14:06→16:30)
[2019-10-29] MEDS: GEODON IM PRN (16:21)
[2019-10-29] MEDS: STERILE WATER INJ. INJ PRN (16:21)
--- NOTE | 2019-10-29 17:00 | PROGRESS NOTE ---
DATE: 10/29/2019 SUBJECTIVE: Patient continues with confusion and intermittent agitation. He had some brief atrial fibrillation but has been mostly in sinus rhythm. OBJECTIVE: Blood pressure 143/98, heart rate 84, oxygen saturation 92% on nasal cannula oxygen at 3 L/minute. There is no significant jugular venous distention. Chest is clear to auscultation bilaterally. Cardiac exam reveals a regular rate and rhythm without appreciable murmur or gallop. Extremities are without edema. DATA: Echocardiography demonstrates normal left ventricular ejection fraction. There is no significant valvular abnormality. LABORATORY DATA: Includes point of care glucose of 156. IMPRESSION: 1. Episode of atrial fibrillation in the setting of excessive alcohol use. Patient has had brief recurrence in the setting of delirium tremens. 2. Alcohol dependency. Patient demonstrating evidence of delirium tremens. 3. Polysubstance abuse in the past. 4. Hypertension. 5. Type 2 diabetes mellitus. RECOMMENDATIONS: 1. Continue to monitor cardiac rhythm. 2. Continue metoprolol. 3. Continue to treat for delirium tremens as you are doing with benzodiazepines. cc: MD Drew Paul MD
[2019-10-29] MEDS: ATIVAN IM PRN (23:03)
[2019-10-30] MEDS: CARDIZEM 100 MG/NS 100 MG/100 ML IVPB IV SCH ×3 (00:07→21:23)
[2019-10-30] MEDS: ZYPREXA ZYDIS SL PRN (00:59)
[2019-10-30] MEDS: LOPRESSOR IV PRN ×3 (01:33→14:29)
[2019-10-30] MEDS: HALDOL IV PRN ×4 (02:43→21:19)
[2019-10-30] MEDS: ATIVAN IV PRN ×3 (06:05→18:14)
[2019-10-30] MEDS: HUMALOG SUBQ SCH ×4 (06:21→20:48)
[2019-10-30] MEDS: GLUCOPHAGE PO SCH ×2 (09:44→17:26)
[2019-10-30] MEDS: PRAVACHOL PO SCH (09:44)
[2019-10-30] MEDS: PRINIVIL PO SCH (09:44)
[2019-10-30] MEDS: JANUVIA PO SCH (09:44)
[2019-10-30] MEDS: NICODERM PATCH TD SCH (09:44)
[2019-10-30] MEDS: TOPROL XL PO SCH (09:44)
[2019-10-30] MEDS: THERA M PLUS PO SCH (09:44)
[2019-10-30] MEDS: THIAMINE 100 MG in NS 50 ML IV SCH (09:55)
[2019-10-30] MEDS ORDERED: TYLENOL PO PRN (09:56)
--- NOTE | 2019-10-30 10:16 | PROGRESS NOTE ---
DATE: 10/30/2019 SUBJECTIVE: The patient is very tremulous, says he feels pretty good right at this time. He says he is not having any pain anywhere. OBJECTIVE: Vital signs: Temperature spiked to 101+ degrees Fahrenheit, blood pressure is 138/108, respirations 28, pulse 112 but a sinus rhythm. He had gone into atrial fibrillation, this converted, has been on a Cardizem drip, I think this can be stopped. He has other medicines for hypertension. He also has diabetes. HEENT: He is normocephalic. EOMS intact. PERRLA. Throat clear. Lungs: Sound clear to auscultation and percussion without rhonchi, rales, or wheezes. Heart: Regular rate and rhythm without murmurs, gallops, or friction rubs. Abdomen: Soft, active bowel sounds. No organomegaly or tenderness. Neurological exam: The patient is very tremulous and DTs and is being treated. ASSESSMENT: 1. Atrial fibrillation with rapid ventricular response, now resolved. 2. Delirium tremens. 3. Alcoholism. 4. Adult-onset diabetes mellitus. 5. Hypertension. 6. Fever of unknown origin. PLAN: Will try to find the source of fever. Continue other treatments. Please see orders. cc: MD Drew Mendoza Jr, MD
[2019-10-30 11:07] LABS: BASO# 0.06 X1000 (0.0-0.2); BASO% 0.5 % (0.0-0.8); EOS# 0.01 X1000 (0.0-0.7); EOS% 0.1 % (0.0-10.0); HEMATOCRIT 44.2 % (42.0-52.0); HEMOGLOBIN 14.7 g/dL (14.0-18.0); IMM GRAN# 0.07 X1000 (0.0-0.04); IMM GRAN% 0.6 % (0.0-0.5); LYMPH# 0.75 X1000 (1.2-3.4); LYMPH% 6.1 % (20.5-51.1); MCH 28.1 PG (27-31); MCHC 33.3 g/dL (33-37); MCV 84.4 FL (81-99); MONO# 0.94 X1000 (0.11-0.59); MONO% 7.6 % (1.7-9.3); MPV 11.7 FL (7.4-10.4); NEUT# 10.56 X1000 (1.4-6.5); NEUT% 85.1 % (42.2-75.2); PLT 108 X1000 (130-400); RBC 5.24 XMIL (4.7-6.1); RDW 17.4 % (11.5-14.5); WBC 12.39 X1000 (4.8-10.8)
[2019-10-30 11:09] LABS: INR 1.06; PROTIME 13.9 Seconds (11.0-16.0)
[2019-10-30 11:10] LABS: PTT 27.5 Seconds (22.3-41.8)
[2019-10-30 11:32] LABS: AGAP 17; ALB/GLOB RATIO 1.1; ALBUMIN 3.8 g/dL (3.5-5.0); ALKALINE PHOSPHATASE 223 U/L (32-122); BUN 19 mg/dL (8-22); CHLORIDE 99 mmol/L (98-107); COSMO 286; CREATININE 0.7 mg/dL (0.7-1.2); ESTIMATED GFR > 60; GLUCOSE 176 mg/dL (70-104); GOT 65 U/L (10-34); GPT 75 U/L (10-44); POTASSIUM 3.7 mmol/L (3.5-5.1); SODIUM 140 mmol/L (136-145); TCO2 24 mmol/L (25-35); TOTAL BILIRUBIN 1.69 mg/dL (0.20-1.00); TOTAL PROTEIN 7.3 g/dL (6.3-8.3)
[2019-10-30] MEDS: TAZIDIME 1 GM in NS 50 ML IV SCH ×2 (11:33→18:10)
[2019-10-30 11:54] LABS: URINE SOURCE CATH
[2019-10-30 12:03] LABS: BILIRUBIN URINE NEGATIVE (NEGATIVE); BLOOD URINE LARGE (NEGATIVE); COLOR YELLOW; GLUCOSE URINE 150 mg/dL (NEGATIVE); KETONE URINE 20 mg/dL (NEGATIVE); LEUKOCYTES URINE NEGATIVE (NEGATIVE); NITRITE URINE NEGATIVE (NEGATIVE); PROTEIN URINE 100 mg/dL (NEGATIVE); TURBIDITY URINE HAZY (CLEAR); UROBILINOGEN URINE 3 mg/dL (NORMAL)
[2019-10-30 12:07] LABS: UR EPITHELIAL CELLS <10 /HPF (<10); URINE BACTERIA NEGATIVE /HPF; URINE RBC TNTC /HPF (<10); URINE WBC <10 /HPF (<10)
[2019-10-30 12:09] LABS: BANDS 2 % (0-1); HYPOCHROM 1+; LYMPHS 12 % (21-51); MONO 4 % (1-9); SEGS 82 % (42-75)
--- NOTE | 2019-10-30 12:14 | Diag Imaging Result Doc PS360 ---
EXAM: CHEST-PORTABLE INDICATION: fever TECHNIQUE: One view COMPARISON: 10/27/2019 FINDINGS: The central vasculature appears slightly prominent suggesting possible very mild pulmonary venous congestion. No new consolidations are appreciated, otherwise. There is no discrete pleural fluid collection or pneumothorax. Cardiac silhouette is stable. IMPRESSION: Slight increased central vascular suggesting possible mild pulmonary venous congestion. Electronically signed by Chris Braden 10/30/2019 12:12 PM
[2019-10-30 12:34] LABS: URINE CRYSTALS NONE SEEN
--- NOTE | 2019-10-30 13:01 | GASTROENTEROLOGY CONSULTATION ---
DATE: 10/30/2019 CONSULTING PHYSICIAN: Lamont Osorio Jr, MD, for Drew Ceja MD. REASON FOR CONSULTATION: Elevated LFT. HISTORY OF PRESENT ILLNESS: This is a 59-year-old gentleman, who has a confessed alcoholic who has been drinking a pint of whiskey every day, admitted to hospital from Dr. Ceja's office after he had presented there with symptoms of withdrawal. During hospitalization, he was found to have elevated LFT, his initial numbers, AST was 368, ALT was 201, alkaline phosphatase was 362, total bilirubin was 2.05. Albumin level was 4.0. Even on admission, he had shown signs of withdrawal and he was found to be in DT, he had elevated blood alcohol level 2. Since admission, he has had acute hepatitis panel done which was negative, and the patient has been getting supportive care. His numbers have improved. His recent LFT shows AST is down to 65 from 368, ALT is down to 75 from 201, alkaline phosphatase is down to 223 from 362. His total bilirubin is also lower, it is 1.69 today. Since admission, he has spiked a temperature. He had a temperature of a 101.7 degrees Fahrenheit today, and since admission his white count has gone up, but interestingly he has developed lymphopenia. His lymphocyte count is low 0.75 and it only 6.1%. IMPRESSION: Acute alcoholic hepatitis. No signs of acute viral hepatitis. Other etiologies are possible, but with a history of a pint of whiskey every day, the pattern is highly suggestive of alcoholic hepatitis. He has been instituted supportive care at this point. I do not think any to intervene any or proceed with any GI intervention other than what has been instituted. However, workup for febrile illness or his fever is in progress. I am concerned his lymphopenia suggests a viral illness. I would entertain the possibility of checking him for Coronavirus Disease 2019 as well. Again, from GI point of view, not much needs to be done or change any management. Continue DT precaution. Continue supportive care, and I will be available if any GI intervention is required. The case was discussed with the ICU nurse. cc: MD Drew Cope MD
[2019-10-30] MEDS: GEODON IM PRN (13:04)
[2019-10-30] MEDS: STERILE WATER INJ. INJ PRN (13:05)
[2019-10-30 13:21] LABS: IRON SATURATION 7 %; TIBC 215 ug/dL; TOTAL IRON 15 ug/dL (53-167); UNBOUND IRON 200 ug/dL (112-346)
[2019-10-31] MEDS: ATIVAN IV PRN ×5 (00:16→20:08)
[2019-10-31] MEDS: LOPRESSOR IV PRN (00:33)
[2019-10-31] MEDS: TAZIDIME 1 GM in NS 50 ML IV SCH ×3 (02:33→20:08)
[2019-10-31] MEDS: HALDOL IV PRN ×3 (02:34→20:08)
[2019-10-31] MEDS: GEODON IM PRN ×3 (03:31→23:40)
[2019-10-31] MEDS ORDERED: LANOXIN IV ONE (05:08)
[2019-10-31] MEDS: HUMALOG SUBQ SCH ×4 (06:21→22:46)
[2019-10-31] MEDS: THIAMINE 100 MG in NS 50 ML IV SCH ×2 (07:52→08:15)
[2019-10-31] MEDS: THERA M PLUS PO SCH ×2 (07:53→08:15)
[2019-10-31] MEDS: PRAVACHOL PO SCH ×2 (07:53→08:15)
[2019-10-31] MEDS: TOPROL XL PO SCH ×2 (07:53→08:15)
[2019-10-31] MEDS: CARDIZEM 100 MG/NS 100 MG/100 ML IVPB IV SCH ×3 (07:53→23:20)
[2019-10-31] MEDS: JANUVIA PO SCH ×2 (07:53→08:14)
[2019-10-31] MEDS: NICODERM PATCH TD SCH ×2 (07:53→08:15)
[2019-10-31] MEDS: GLUCOPHAGE PO SCH ×3 (07:53→18:55)
[2019-10-31] MEDS: PRINIVIL PO SCH ×2 (07:54→08:15)
--- NOTE | 2019-10-31 11:03 | PROGRESS NOTE ---
DATE: 10/31/2019 SUBJECTIVE: The patient is very nervous. He shaking with his DTs. Says he is not hurting anywhere. We will make sure that he gets more Ativan. OBJECTIVE: Temperature is 100.1 degrees Fahrenheit, pulse 109, respirations 22, blood pressure 119/65, oxygen saturation is 99% on 2 L. HEENT: Normocephalic. EOMs intact. PERRLA. Throat clear. Lungs: Clear to auscultation and percussion without rhonchi, rales, or wheezes. Heart: Regular rate and rhythm without murmurs, gallops, or friction rubs. Abdomen: Soft. Active bowel sounds. No organomegaly or tenderness. Neurological Examination: The patient is very nervous and DTs, otherwise stable. White count has gone up from 6430 on the to 12,390 yesterday. Liver function tests yesterday have improved from previous days. Urine showed too numerous to count RBCs but less than 10 WBCs and dipstick was negative. Chest x-ray was essentially clear except for a little pulmonary congestion. ASSESSMENT: 1. Delirium tremens. 2. Alcoholic hepatitis, improving. 3. Fever of unknown origin. I have done blood cultures and started antibiotics, have tested him for Covid-19 but this is pending. PLAN: Continue support. cc: MD Drew Mendoza Jr, MD
[2019-10-31 11:53] LABS: AGAP 17; ALB/GLOB RATIO 1.3; ALBUMIN 3.5 g/dL (3.5-5.0); ALKALINE PHOSPHATASE 165 U/L (32-122); BUN 26 mg/dL (8-22); CALCIUM 8.5 mg/dL (8.8-10.2); CHLORIDE 104 mmol/L (98-107); COSMO 292; CREATININE 0.8 mg/dL (0.7-1.2); ESTIMATED GFR > 60; GLUCOSE 145 mg/dL (70-104); GOT 56 U/L (10-34); GPT 53 U/L (10-44); POTASSIUM 3.3 mmol/L (3.5-5.1); SODIUM 143 mmol/L (136-145); TCO2 22 mmol/L (25-35); TOTAL BILIRUBIN 1.46 mg/dL (0.20-1.00); TOTAL PROTEIN 6.3 g/dL (6.3-8.3)
--- NOTE | 2019-10-31 13:11 | GASTROENTEROLOGY PROGRESS NOTE ---
DATE: 10/31/2019 Mr. Nuñez remains agitated and he is in DT. No new complaints. He remains afebrile. LFTs have trended down. In fact, his AST is down to 56, ALT 53, with alkaline phosphatase 165, and total bilirubin 1.45. As far as the focus of fever, we have not been able to identify. Covid-19 results are still pending. So far, workup has not revealed any other focus of infection. Iron levels are within the expected range. He does not appear to have hemochromatosis as possible cause of liver injury, which I still think is secondary to alcoholic hepatitis. However, other pathologies that are causing him a fever and all that may have caused the elevated LFT, which again is trending down very nicely. At this point, no new suggestions. Continue current management. From GI perspective, not much to add. I will be available if needed. Case was discussed with Dr. Osorio. cc: MD Drew Cope MD
[2019-11-01] MEDS: TAZIDIME 1 GM in NS 50 ML IV SCH ×3 (02:38→18:21)
[2019-11-01] MEDS: HUMALOG SUBQ SCH ×4 (06:47→20:17)
[2019-11-01 07:04] LABS: BASO# 0.03 X1000 (0.0-0.2); BASO% 0.3 % (0.0-0.8); EOS# 0.11 X1000 (0.0-0.7); HEMATOCRIT 40.7 % (42.0-52.0); HEMOGLOBIN 13.2 g/dL (14.0-18.0); IMM GRAN# 0.02 X1000 (0.0-0.04); IMM GRAN% 0.2 % (0.0-0.5); LYMPH# 1.07 X1000 (1.2-3.4); LYMPH% 10.1 % (20.5-51.1); MCH 28.1 PG (27-31); MCHC 32.4 g/dL (33-37); MCV 86.6 FL (81-99); MONO# 1.09 X1000 (0.11-0.59); MONO% 10.2 % (1.7-9.3); MPV 11.7 FL (7.4-10.4); NEUT# 8.32 X1000 (1.4-6.5); NEUT% 78.2 % (42.2-75.2); PLT 166 X1000 (130-400); RDW 16.9 % (11.5-14.5); WBC 10.64 X1000 (4.8-10.8)
--- NOTE | 2019-11-01 07:48 | EKG Report ---
Test Performed on : 10/29/2019 11:52:56 PM Test Reason : RYHTHM CHANGE Blood Pressure : / mmHG Vent. Rate : 110 BPM Atrial Rate : 122 BPM P-R Int : 000 ms QRS Dur : 092 ms QT Int : 364 ms P-R-T Axes : 000 047 060 degrees QTc Int : 492 ms Atrial fibrillation. with rapid ventricular response. ST depression, consider subendocardial injury Abnormal ECG When compared with ECG of 29-OCT-2019 05:51, (Unconfirmed) Nonspecific T wave abnormality no longer evident in Inferior leads Confirmed by Dae Contreras MD ([id number]) on 11/02/2019 1:28:23 PM
[2019-11-01] MEDS ORDERED: PROTONIX [NONFORMULARY] PO ONE (08:34)
--- NOTE | 2019-11-01 08:54 | PROGRESS NOTE ---
DATE: 11/01/2019 SUBJECTIVE: Mr. Nuñez continues to be in delirium, is very confused. Vital signs are stable. He is in regular sinus rhythm. He is being checked for antimitochondrial antibodies and COVID-[address] Mendoza. His liver enzymes are better stasis, definitely consistent with alcoholic hepatitis. General condition is unchanged. Vital signs are stable. He is getting IV fluids, as well as oral metformin. Lanoxin [address] dose [address] Alves actually yesterday. Had bee on Geodon; it works quite well on him. Put him on Protonix by mouth. cc: Drew Ceja MD
[2019-11-01] MEDS: GLUCOPHAGE PO SCH ×2 (09:00→16:06)
[2019-11-01] MEDS: JANUVIA PO SCH (09:40)
[2019-11-01] MEDS: NICODERM PATCH TD SCH (09:40)
[2019-11-01] MEDS: THERA M PLUS PO SCH (09:40)
[2019-11-01] MEDS: PRAVACHOL PO SCH (09:40)
[2019-11-01] MEDS: TOPROL XL PO SCH (09:40)
[2019-11-01] MEDS: PRINIVIL PO SCH (09:40)
[2019-11-01] MEDS: THIAMINE 100 MG in NS 50 ML IV SCH (09:40)
[2019-11-01] MEDS: CARDIZEM 100 MG/NS 100 MG/100 ML IVPB IV SCH ×2 (09:42→18:21)
[2019-11-01] MEDS: ATIVAN IV PRN ×2 (16:06→20:06)
[2019-11-01] MEDS ORDERED: LOPRESSOR IV PRN (16:27)
--- NOTE | 2019-11-01 17:12 | PROGRESS NOTE ---
DATE: 11/01/2019 SUBJECTIVE: The patient continues confused. He went into atrial fibrillation yesterday and continued on IV diltiazem drip to control heart rate. OBJECTIVE: Blood pressure 129/88, heart rate 82 with ECG monitor showing atrial fibrillation with controlled rate. Oxygen saturation 98%. There is no significant jugular venous distention. The chest is clear to auscultation anteriorly. The cardiac exam reveals an irregular rate and rhythm without appreciable murmur or gallop. There is no evidence of peripheral edema. LABORATORY DATA: Includes a white blood cell count 10.64, hematocrit 40.7, hemoglobin 13.2, platelet count 166,000. IMPRESSION: 1. Recurrent atrial fibrillation in the setting of alcohol withdrawal syndrome with delirium tremens, as well as recent febrile illness. 2. Alcohol dependency. Patient demonstrating delirium tremens. 3. Febrile illness, manifest with unclear source. 4. Polysubstance abuse in the past. 5. Hypertension. 6. Type 2 diabetes mellitus. RECOMMENDATIONS: 1. Continue metoprolol. 2. Utilize IV metoprolol as needed to maintain heart rate control to hopefully facilitate tapering off IV diltiazem. 3. Given persistence of atrial fibrillation, will initiate Lovenox 1 mg/kg subcutaneously q.12. cc: MD Drew Paul MD
[2019-11-01] MEDS: LOVENOX SUBQ SCH (17:30)
[2019-11-01] MEDS: HALDOL IV PRN (18:21)
[2019-11-01] MEDS: NORCO-10 PO PRN (19:47)
[2019-11-01] MEDS: STERILE WATER INJ. INJ PRN (21:56)
[2019-11-01] MEDS: GEODON IM PRN (21:56)
[2019-11-02] MEDS: HALDOL IV PRN ×4 (01:11→19:42)
[2019-11-02] MEDS: ATIVAN IV PRN ×3 (01:12→19:43)
[2019-11-02] MEDS: TAZIDIME 1 GM in NS 50 ML IV SCH ×3 (03:13→18:45)
[2019-11-02] MEDS: CARDIZEM 100 MG/NS 100 MG/100 ML IVPB IV SCH (03:14)
[2019-11-02] MEDS: LOVENOX SUBQ SCH (03:38)
[2019-11-02] MEDS: HUMALOG SUBQ SCH ×4 (06:11→20:30)
[2019-11-02 06:45] LABS: BASO# 0.03 X1000 (0.0-0.2); BASO% 0.3 % (0.0-0.8); EOS# 0.15 X1000 (0.0-0.7); EOS% 1.6 % (0.0-10.0); HEMATOCRIT 46.6 % (42.0-52.0); HEMOGLOBIN 14.7 g/dL (14.0-18.0); IMM GRAN# 0.02 X1000 (0.0-0.04); IMM GRAN% 0.2 % (0.0-0.5); LYMPH% 14.9 % (20.5-51.1); MCH 27.7 PG (27-31); MCHC 31.5 g/dL (33-37); MCV 87.9 FL (81-99); MONO# 1.06 X1000 (0.11-0.59); MONO% 11.3 % (1.7-9.3); MPV 12.8 FL (7.4-10.4); NEUT# 6.73 X1000 (1.4-6.5); NEUT% 71.7 % (42.2-75.2); PLT 192 X1000 (130-400); RDW 16.7 % (11.5-14.5); WBC 9.39 X1000 (4.8-10.8)
[2019-11-02] MEDS: GLUCOPHAGE PO SCH ×2 (08:18→17:14)
[2019-11-02] MEDS: PRINIVIL PO SCH (08:18)
[2019-11-02] MEDS: PRAVACHOL PO SCH (08:18)
[2019-11-02] MEDS: THERA M PLUS PO SCH (08:18)
[2019-11-02] MEDS: JANUVIA PO SCH (08:18)
[2019-11-02] MEDS: TOPROL XL PO SCH (08:18)
[2019-11-02] MEDS: NICODERM PATCH TD SCH (08:19)
[2019-11-02] MEDS: THIAMINE 100 MG in NS 50 ML IV SCH (08:22)
--- NOTE | 2019-11-02 09:53 | PROGRESS NOTE ---
DATE: 11/02/2019 SUBJECTIVE: Mr. Nuñez is doing somewhat better. Today, he is more oriented. He is alert. He still has a lot of shakes. OBJECTIVE: Vital signs are stable. He has been in and out of atrial fibrillation, and was placed on Lovenox by the ekg technician. CBC is unremarkable. Heart rate is still 121. Lungs are clear. Heart sounds are normal. He has coarse tremors. LABORATORY DATA: Unremarkable. Blood sugar is stable. Will repeat his electrolytes in the morning. cc: Drew Ceja MD
--- NOTE | 2019-11-02 16:33 | PROGRESS NOTE ---
DATE: 11/02/2019 SUBJECTIVE: The patient continues with intermittent confusion. He has converted back to sinus rhythm. OBJECTIVE: Vital Signs: Blood pressure 152/75, heart rate 64 and regular with ECG monitor showing sinus rhythm. Oxygen saturation 92 to 95 percent on supplemental oxygen per nasal cannula. Neck: There is no significant jugular venous distention. Lungs: Chest is clear to auscultation. Cardiac: Reveals a regular rate and rhythm without appreciable murmur or gallop. There is no evidence of peripheral edema. LABORATORY DATA: Includes a white blood cell count 9.39, hematocrit 46.6, hemoglobin 14.7, platelet count 192,000. IMPRESSION: 1. Intermittent atrial fibrillation in the setting of alcohol withdrawal syndrome with delirium tremens, as well as recent febrile illness. 2. Alcohol dependency/delirium tremens. 3. Recent febrile illness while in the hospital. Etiology not clear. 4. Polysubstance abuse in the past. 5. Hypertension. 6. Type 2 diabetes mellitus. RECOMMENDATIONS: 1. Continue metoprolol succinate 100 mg daily. 2. Continue Lovenox at 40 mg subcutaneously daily for DVT prophylaxis status at this point. cc: MD Drew Paul MD
[2019-11-02] MEDS: NORCO-10 PO PRN (19:43)
[2019-11-02] MEDS: GEODON IM PRN (21:37)
[2019-11-03] MEDS: ATIVAN IV PRN ×5 (00:55→22:13)
[2019-11-03] MEDS: TAZIDIME 1 GM in NS 50 ML IV SCH ×3 (05:02→20:53)
[2019-11-03] MEDS: HUMALOG SUBQ SCH ×3 (06:05→16:30)
[2019-11-03] MEDS: NORCO-10 PO PRN ×2 (06:29→20:53)
[2019-11-03 08:05] LABS: BASO# 0.08 X1000 (0.0-0.2); EOS% 2.6 % (0.0-10.0); HEMATOCRIT 38.3 % (42.0-52.0); HEMOGLOBIN 12.1 g/dL (14.0-18.0); IMM GRAN# 0.02 X1000 (0.0-0.04); IMM GRAN% 0.3 % (0.0-0.5); LYMPH# 1.32 X1000 (1.2-3.4); LYMPH% 17.1 % (20.5-51.1); MCH 27.8 PG (27-31); MCHC 31.6 g/dL (33-37); MONO# 0.75 X1000 (0.11-0.59); MONO% 9.7 % (1.7-9.3); MPV 11.5 FL (7.4-10.4); NEUT# 5.34 X1000 (1.4-6.5); NEUT% 69.3 % (42.2-75.2); PLT 233 X1000 (130-400); RBC 4.35 XMIL (4.7-6.1); RDW 15.9 % (11.5-14.5); WBC 7.71 X1000 (4.8-10.8)
[2019-11-03] MEDS: PRINIVIL PO SCH (08:28)
[2019-11-03] MEDS: PRAVACHOL PO SCH (08:28)
[2019-11-03] MEDS: THERA M PLUS PO SCH (08:28)
[2019-11-03] MEDS: GLUCOPHAGE PO SCH ×2 (08:28→16:40)
[2019-11-03] MEDS: TOPROL XL PO SCH (08:28)
[2019-11-03] MEDS: LOVENOX SUBQ SCH (08:29)
[2019-11-03] MEDS: THIAMINE 100 MG in NS 50 ML IV SCH (08:29)
[2019-11-03] MEDS: NICODERM PATCH TD SCH (08:29)
[2019-11-03] MEDS: JANUVIA PO SCH (08:29)
[2019-11-03] MEDS: HALDOL IV PRN ×2 (08:29→20:53)
[2019-11-03 08:36] LABS: AGAP 13; ALB/GLOB RATIO 1.1; ALBUMIN 3.3 g/dL (3.5-5.0); ALKALINE PHOSPHATASE 206 U/L (32-122); BUN 27 mg/dL (8-22); CALCIUM 9.1 mg/dL (8.8-10.2); CHLORIDE 109 mmol/L (98-107); COSMO 294; CREATININE 0.5 mg/dL (0.7-1.2); ESTIMATED GFR > 60; GLUCOSE 143 mg/dL (70-104); GOT 42 U/L (10-34); GPT 57 U/L (10-44); MAGNESIUM 1.8 mg/dL (1.5-2.7); POTASSIUM 3.7 mmol/L (3.5-5.1); SODIUM 144 mmol/L (136-145); TCO2 22 mmol/L (25-35); TOTAL BILIRUBIN 0.83 mg/dL (0.20-1.00); TOTAL PROTEIN 6.3 g/dL (6.3-8.3)
--- NOTE | 2019-11-03 09:23 | PROGRESS NOTE ---
DATE: 11/03/2019 Mr. Nuñez is feeling better. He is more alert. Still somewhat shaky. Vital signs are stable. Electrolytes are stable. He is in regular sinus rhythm. I am going to transfer him to the floor today. His Covid-19 is not back yet. -0 cc: Drew Ceja MD
--- NOTE | 2019-11-03 14:43 | PROGRESS NOTE ---
DATE: 11/03/2019 SUBJECTIVE: The patient is somewhat confused when I see him. He is not certain of his present location. He denies any chest discomfort or shortness of breath. He continues in sinus rhythm. OBJECTIVE: Vital Signs: Blood pressure 142/84, heart rate 73 with ECG monitor showing sinus rhythm. Oxygen saturation 97% on room air. HEENT: There is no significant jugular venous distention. Chest: Clear to auscultation bilaterally. Cardiac: Exam reveals a regular rate and rhythm without appreciable murmur or gallop. There is no evidence of peripheral edema. LABORATORY DATA: Includes white blood cell count 7.71, hematocrit 38.3, hemoglobin 12.1, platelet count 233,000. Sodium 144, potassium 3.7, chloride 109, carbon dioxide 22, BUN 27, creatinine 0.5, glucose 143. Bilirubin 0.3. AST 42, ALT 57, alkaline phosphatase 206. IMPRESSION: 1. Intermittent atrial fibrillation in setting of alcohol withdrawal syndrome. 2. Alcohol withdrawal syndrome with delirium tremens. Patient gradually improving. 3. Polysubstance abuse in the past. 4. Hypertension. 5. Type 2 diabetes mellitus. RECOMMENDATIONS: 1. Continue current metoprolol succinate 100 mg daily. 2. Continue to monitor rhythm as patient recovers. cc: MD Drew Paul MD
[2019-11-04] MEDS: NORCO-10 PO PRN ×3 (02:00→20:51)
[2019-11-04] MEDS: HALDOL IV PRN (02:01)
[2019-11-04] MEDS: ZYPREXA ZYDIS SL PRN ×2 (02:01→22:17)
[2019-11-04] MEDS: TAZIDIME 1 GM in NS 50 ML IV SCH ×3 (04:53→20:25)
[2019-11-04] MEDS: HUMALOG SUBQ SCH ×5 (04:53→22:41)
[2019-11-04] MEDS: GLUCOPHAGE PO SCH ×2 (07:43→16:09)
[2019-11-04] MEDS: PRINIVIL PO SCH ×2 (07:43→08:00)
[2019-11-04] MEDS: TOPROL XL PO SCH ×2 (07:43→08:01)
[2019-11-04] MEDS: THERA M PLUS PO SCH ×2 (07:43→08:00)
[2019-11-04] MEDS: ATIVAN IV PRN ×4 (07:44→20:54)
[2019-11-04] MEDS: THIAMINE 100 MG in NS 50 ML IV SCH ×3 (07:44→20:59)
[2019-11-04] MEDS: LOVENOX SUBQ SCH ×2 (07:44→08:00)
[2019-11-04] MEDS: JANUVIA PO SCH ×2 (07:44→07:59)
[2019-11-04] MEDS: PRAVACHOL PO SCH ×2 (07:44→08:00)
[2019-11-04] MEDS: NICODERM PATCH TD SCH ×2 (07:47→08:00)
--- NOTE | 2019-11-04 09:29 | PROGRESS NOTE ---
DATE: 11/04/2019 Mr. Nuñez was moved out of ICU. His coronavirus test is negative. We are going to discontinue most of his IV medications today. He is very weak. We will try physical therapy. His electrolyte status was fairly normal yesterday except the blood sugar has been up. He has diabetes. We are going to ask physical therapy to help him walk. The liver enzymes have almost come back to normal. It certainly appears like alcoholic hepatitis. We will probably discharge him in the morning. cc: Drew Ceja MD
[2019-11-05] MEDS: HALDOL IV PRN (01:48)
[2019-11-05] MEDS: ATIVAN IV PRN ×2 (01:49→09:42)
[2019-11-05] MEDS: TAZIDIME 1 GM in NS 50 ML IV SCH (04:33)
[2019-11-05] MEDS: HUMALOG SUBQ SCH (07:23)
[2019-11-05 07:24] LABS: AGAP 9; BUN 21 mg/dL (8-22); CALCIUM 9.2 mg/dL (8.8-10.2); CHLORIDE 108 mmol/L (98-107); COSMO 287; CREATININE 0.6 mg/dL (0.7-1.2); ESTIMATED GFR > 60; GLUCOSE 140 mg/dL (70-104); POTASSIUM 3.6 mmol/L (3.5-5.1); SODIUM 141 mmol/L (136-145); TCO2 24 mmol/L (25-35)
[2019-11-05] MEDS: THERA M PLUS PO SCH (08:39)
[2019-11-05] MEDS: PRAVACHOL PO SCH (08:39)
[2019-11-05] MEDS: TOPROL XL PO SCH (08:39)
[2019-11-05] MEDS: JANUVIA PO SCH (08:39)
[2019-11-05] MEDS: PRINIVIL PO SCH (08:39)
[2019-11-05] MEDS: NORCO-10 PO PRN (08:39)
[2019-11-05] MEDS: NICODERM PATCH TD SCH (08:39)
[2019-11-05] MEDS: LOVENOX SUBQ SCH (08:40)
[2019-11-05] MEDS: GLUCOPHAGE PO SCH (08:40)
[2019-11-05] MEDS: THIAMINE 100 MG in NS 50 ML IV SCH (09:42)
--- NOTE | 2019-11-05 11:02 | PROGRESS NOTE ---
DATE: 11/05/2019 Mr. Nuñez is doing better. Vital signs are stable. There is practically no shaking. His electrolyte status is normal. I am going to discharge him today. He is definitely asked to stop the alcohol. cc: Drew Ceja MD
--- NOTE | 2019-11-05 11:21 | DISCHARGE SUMMARY ---
ADMISSION DATE: 10/27/2019 DISCHARGE DATE: 11/05/2019 HOSPITAL COURSE: Mr. Nuñez, who is a 59-year-old white gentleman, comes to the office not feeling well. He was in atrial fibrillation with rapid ventricular rate around 130. He was admitted to ICU. He has been an alcoholic and drinks regularly. After admission, ... INCOMPLETE REPORT -- DICTATION ENDS HERE. cc: Drew Ceja MD
--- NOTE | 2019-11-05 11:41 | DISCHARGE SUMMARY ---
ADMISSION DATE: 10/27/2019 DISCHARGE DATE: ADDENDUM: The lab data revealed EKG showing regular sinus rhythm with normal axis deviation. An echocardiogram Doppler revealed the presence of normal aortic, mitral, as well as pulmonary valve. There was mild tricuspid regurgitation. The aortic root was normal in size. Normal left ventricular dimension. Ejection fraction was at least up to 65%. No pericardial effusion was noted. Chest x-ray was unremarkable. Other laboratory data revealed CBC was unremarkable. INR was 0.89. Blood gases were normal. Chemistries revealed when he came in, his potassium was normal. BUN was 25. Liver enzymes were highly elevated with AST of 368, ALT of 201, and alkaline phosphatase was 362. On 10/29, it came down to AST of 65, ALT of 75, and alkaline phosphatase of 223. His ferritin was 978. Final electrolytes are normal. Plasma lactate was 1.8. COURSE IN HOSPITAL: He was initially admitted to the ICU. When he came to the ICU, he was in regular sinus rhythm. Cardiology consult was made. Later on, GI consult was made with Dr. Mendoza. He had alcoholic hepatitis. Dr. Mendoza thought we needed to order COVID-19, which was done, and it came back negative. General condition continued to get worse as he has been dependent on alcohol at least for the last 3 months according to him, and he went into full- fledged DTs. We had to restrain him. We had to use IV Ativan and DT protocol, and finally we had to give him the Geodon and restrain him. Gradually, he came out of it. He is alert now. He has hypertension. I am going to give him [place] 10 t.i.d. p.r.n. 90, Xanax 1 mg b.i.d. p.r.n. 60, and metoprolol succinate 100 mg daily, 90 tablets. He will be seen in the office on p.r.n. basis on account of the COVID-19 crisis. FINAL DIAGNOSES: 1. Paroxysmal atrial fibrillation. 2. Alcoholic delirium tremens. 3. Severe hypertension. 4. Mature onset diabetes. 5. Degenerative disk disease in the lumbar spine and severe arthritis in the left hip. cc: Drew Ceja MD
[2019-11-05 11:52] VITALS: BP 152/66
== END 2019-11-05 12:34 | disposition home health service (06) | DRG 897 ==
LOC: DIRADM 10:28 → ICU 12:06 → 3N 11-03 15:56
PROVIDERS: ADMIT Internal Medicine; ATTEND Internal Medicine